=== PATIENT | male | born 1980 | race Caucasian/White ===

== ENCOUNTER 2019-05-01 07:57 | Emergency (ER) | payer SELFPAY ==
[2019-05-01 07:58] VITALS: BP 138/86; PULSE 79; RESP 18; TEMP 36.6; O2SAT 98; BMI 29.3
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
[2019-05-01 09:26] VITALS: BP 139/77; PULSE 84; RESP 16; O2SAT 98
[2019-05-01] MEDS: Acetaminophen 500 MG Tablet 1000 MG PO (09:35)
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
[2019-05-01 10:23] VITALS: BP 102/78; PULSE 62; RESP 15; O2SAT 99
== END 2019-05-01 10:25 | disposition home or self-care (01) ==
PROVIDERS: Emergency Provider Emergency Medicine; Family Provider Internal Medicine; PCP Internal Medicine
DX: M25.552 Pain in left hip (principal); S30.811A Abrasion of abdominal wall, initial encounter; Z72.0 Tobacco use; V47.5XXA Car driver injured in collision with fixed or stationary object in traffic accident, initial encounter; Y93.84 Activity, sleeping; Y92.410 Unspecified street and highway as the place of occurrence of the external cause; Y99.8 Other external cause status
CPT/HCPCS: 70450; 71045; 72125; 73502; 74177; 99284; Q9967; A4216